=== PATIENT | female | born 1975 ===

== ENCOUNTER 2021-02-26 11:45 | Inpatient (IN) | payer OTHER ==
[~2021-02-26] VITALS: Ht 167.6 cm; Wt 68.5 kg
[2021-03-06] MEDS ORDERED: POLY119PG PO (06:09)
[2021-03-06] MEDS ORDERED: SIMETHICONE125 M1 PO (06:09)
[2021-03-06] MEDS ORDERED: NEURONTIN600 MG PO (06:09)
[2021-03-06] MEDS ORDERED: IBUPROFEN800 MG PO (06:09)
== END 2021-03-06 09:11 | disposition home or self-care (01) | DRG 743 ==
LOC: OB/GYN 03-03 05:53 → O/R 03-03 05:53 → OB/GYN 03-03 07:00
PROVIDERS: ADMIT Obstetrics & Gynecology; ATTEND Obstetrics & Gynecology
PROC: 0UT70ZZ Resection of Bilateral Fallopian Tubes, Open Approach (ICD-10-PCS; 2021-03-03)
PROC: 0UT90ZZ Resection of Uterus, Open Approach (ICD-10-PCS; principal; 2021-03-03 07:00)
DX: N93.9 Abnormal uterine and vaginal bleeding, unspecified (principal); D25.1 Intramural leiomyoma of uterus